=== PATIENT | male | born 1985 | race Caucasian/White ===

== ENCOUNTER 2017-06-11 22:48 | Emergency (ER) | payer SELFPAY ==
[~2017-06-11] VITALS: Ht 188 cm; Wt 110.2 kg
[2017-06-11 22:55] VITALS: Ht 188 cm; Wt 110.2 kg
[2017-06-12 01:23] VITALS: BP 134/75
== END 2017-06-12 01:23 | disposition home or self-care (01) ==
LOC: ED 22:48
DX: S61.250A Open bite of right index finger without damage to nail, initial encounter (principal); W54.0XXA Bitten by dog, initial encounter; Y93.89 Activity, other specified; Y92.89 Other specified places as the place of occurrence of the external cause; Y99.8 Other external cause status
CPT/HCPCS: 90715; J0295; J1885; J3490

== ENCOUNTER 2019-01-16 01:38 | Emergency (ER) | payer BC ==
[~2019-01-16] VITALS: Ht 188 cm; Wt 105.7 kg
[2019-01-16 01:47] VITALS: Ht 188 cm; Wt 105.7 kg
[2019-01-16 02:17] VITALS: BP 132/68
== END 2019-01-16 02:17 | disposition home or self-care (01) ==
LOC: ED 01:38
DX: K08.89 Other specified disorders of teeth and supporting structures (principal)
CPT/HCPCS: J1885